=== PATIENT | male | born 1960 | race Caucasian/White ===

== ENCOUNTER 2018-12-03 10:34 | Emergency (ER) | payer OTHER, SELFPAY ==
[2018-08-02 16:09] VITALS: BMI 36.7
[2018-12-03 10:37] VITALS: BP 136/79; PULSE 81; RESP 18; TEMP 36.6; O2SAT 99; BMI 36.2
--- NOTE | 2018-12-03 11:06 | ED.DCSUM_ITS ---
- ER Visit Summary Date of Service: 12/03/18 Chief Complaint: Knee injury, ankle injury History of Present Illness: The patient is a 58 M presents to the emergency department with left knee injury and right ankle injury. Patient states that on Tuesday, he [place] stairs [place]. He states his left knee gave out which is not atypical. However, states he twisted under him and he ended up landing on his right ankle and twisting out. He did not strike his head. He denies loss of consciousness. States the knee did swell up. He is been taking ibuprofen and using ice. He is still able to bear weight but does describe pain. He also feels like the knee is loose. Physical Examination: Exam is relatively unremarkable. Patient does have some laxity of anterior drawer testing. There is a small effusion. His extension is preserved. There is no erythema or edema. His pulses are normal. Examination of the right ankle does demonstrate some tenderness over the lateral malleolus, but no proximal fibular tenderness or tenderness over the head of the fifth metatarsal. Test Results: [] Emergency Department Course and Treatment:The patient does have some mild laxity of the knee but there is no gross ligamentous disruption. I did obtain plain films. There is a small effusion, but no fracture. I obtained x-rays of his right ankle 2 which were negative. The patient states that when he stands, he f eels as if his knee is loose. Because of this, I am going to treat him conservatively with a knee immobilizer. He is also given crutches and a short course of analgesics. He will be given outpatient orthopedic follow-up. He is comfortable with this plan of care and will be discharged home. Treatment Plan: [] Disposition: Discharge Impression: 1. Left knee sprain with effusion 2. Right ankle sprain This note was generated with [employer] dictation software. It may contain incorrect words, spelling, and punctuation that were not noted in review of the chart prior to signing ED Disposition - Plan for ED Patient: Instructions: ED Effusion Knee Prescriptions: Hydrocodone Bitart/Apap 5-325 [[place] 5MG-325MG] 1 tab PO Q6H PRN PRN 3 Days #10 tab PRN Reason: Pain Referrals: Therese Laguerre DO [STAFF PHYSICIAN] -
--- NOTE | 2018-12-03 11:20 | RAD_ITS ---
STUDY: X-RAY - RIGHT ANKLE REASON FOR EXAM: Male, 58 years old. Rolled ankle last Jt, pain and swelling TECHNIQUE: 3 view(s) of the ankle. COMPARISON: None. FINDINGS: Bony protuberance of the distal fibula and distal tibia, likely sequela of old injury. Old medial malleolus fracture is noted. Normal tibiotalar articulation and ankle mortise. Normal visualized talus and calcaneus. The visualized subtalar, talonavicular, calcaneocuboid and tarsal articulations are normal. There is mild soft tissue swelling surrounding the ankle. RAD/Ankle min 3 Views IMPRESSION: 1. No fracture or malalignment. Mild soft tissue swelling. 2. Sequelae of old injury, as above. Electronically Signed: Richard Singh MD at 11:50 EDT , Service support ,
--- NOTE | 2018-12-03 11:28 | RAD_ITS ---
STUDY: X-RAY - LEFT KNEE REASON FOR EXAM: Male, 58 years old. Left knee gave out last Jt, pain TECHNIQUE: 4 view(s) of the knee. COMPARISON: None. FINDINGS: Normal visualized distal femur. Normal visualized proximal tibia and fibula. Normal proximal tibiofibular articulation. Normal medial femorotibial compartment. Normal lateral femorotibial compartment. There is mild degenerative arthrosis of the patellofemoral articulation. There is a soft tissue prominence in the suprapatellar region suggesting a small volume joint effusion. The soft tissue structures are unremarkable. RAD/Knee 4 or More Views IMPRESSION: Small joint effusion. No fracture or malalignment. Electronically Signed: Richard Singh MD at 11:43 EDT , Service support ,
[2018-12-03] MEDS: Ondansetron ODT 4 MG Tablet PO (11:49)
[2018-12-03] MEDS: HYDROcodone Bitartrate/Apap 5/325 Tablet PO (11:50)
[2018-12-03 13:05] VITALS: BP 127/70; PULSE 88; RESP 17; O2SAT 99
== END 2018-12-03 13:08 | disposition home or self-care (01) ==
PROVIDERS: Emergency Provider Emergency Medicine; Family Provider Nurse Practitioner; PCP Nurse Practitioner
DX: S83.92XA Sprain of unspecified site of left knee, initial encounter (principal); M25.462 Effusion, left knee; S93.401A Sprain of unspecified ligament of right ankle, initial encounter; X50.1XXA Overexertion from prolonged static or awkward postures, initial encounter; Y93.39 Activity, other involving climbing, rappelling and jumping off; Y92.008 Other place in unspecified non-institutional (private) residence as the place of occurrence of the external cause; I10 Essential (primary) hypertension
CPT/HCPCS: 73564; 73610; 99285

== ENCOUNTER → 2018-12-22 06:36 | Outpatient (CLI) | payer OTHER, SELFPAY ==
[2018-12-07 13:35] VITALS: BMI 36.2
--- NOTE | 2018-12-22 06:37 | MRI_ITS ---
STUDY: MRI LEFT KNEE REASON FOR EXAM: Medial knee pain after injury 2 weeks ago. TECHNIQUE: Standardized fat and water weighted pulse sequences were obtained in all 3 orthogonal planes. COMPARISON: Radiographs 12/03/2018. FINDINGS: There is a complex tear of the posterior horn of the medial meniscus (proton-density sagittal images 7-10) including a small radial component at the root (T2 sagittal image 10). There is peripheral subluxation of the medial meniscus. Normal hyaline cartilage of the medial femorotibial compartment. Normal medial femoral condyle and tibial plateau. There is a partial tear of the medial collateral ligament at the femoral origin (T2 coronal image 16). Normal distal semimembranosus, gracilis and semitendinosus tendons. Normal lateral meniscus. Normal hyaline cartilage of the lateral femorotibial compartment. Normal lateral femoral condyle and tibial plateau. Normal proximal tibiofibular articulation. There is a mild sprain of the fibular collateral ligament (T2 coronal image 13). Normal popliteus tendon. Normal biceps femoris tendon. Normal anterior cruciate ligament (ACL). Normal posterior cruciate ligament (PCL). Normal congruent patellofemoral articulation. Normal hyaline cartilage of the patellofemoral compartment. Normal medial and lateral patellar retinaculum. Normal visualized quadriceps tendon. There is mild patellar tendinosis (T2 sagittal image 15). Normal Hoffa's fat pad. There is a qkowa-gh-ytqvlarf sized joint effusion. There is a small focus of synovitis at the anterior mesial aspect of the medial tibial plateau (T2 sagittal image 12). The soft tissues are unremarkable. The otherwise visualized osseous structures are unremarkable. MRI/Lower Ext Joint Only (Routine) IMPRESSION: Medial meniscal tear. Partial tear of the medial collateral ligament. Mild sprain of the fibular collateral ligament. Mild patellar tendinosis. Joint effusion with small focus of synovitis. Electronically Signed: Maverick Thomson MD at 9:28 EDT Tel , Service support ,
== END ==
PROVIDERS: Family Provider Nurse Practitioner; PCP Nurse Practitioner; Referring Provider Physician Assistant; Visit Provider Physician Assistant
DX: M23.8X2 Other internal derangements of left knee (principal); M23.332 Other meniscus derangements, other medial meniscus, left knee
CPT/HCPCS: 73721

== ENCOUNTER 2019-01-30 10:25 | Day surgery (SDC) | payer OTHER, SELFPAY ==
[2019-01-17 09:26] VITALS: BMI 36.2
--- NOTE | 2019-01-17 10:32 | HP_ITS ---
Intake Vital Signs 01/17/19 Body Mass Index (BMI) 36.2 Intake Visit Reasons: LEFT KNEE Allergies No Known Allergies Allergy (Verified 12/03/18 10:37) [facility] Medical History (Updated 08/02/18 @ 16:14 by ILANA Mcgee) Gout (Acute) TRIGLYCERIDEMIA (Acute) Family History (Updated 08/02/18 @ 15:06 by Mehnaz Denny) Other Diabetes Hypertension Lung cancer Social History (Updated 01/17/19 @ 10:32 by ERICA Macdonald) Smoking Status: Never smoker second hand exposure: No alcohol intake: current substance use type: does not use HPI LEFT KNEE: Surgical H&P: Yes Details: Parts of this documentation were recorded by a scribe, this documentation accurately reflects the service provided and the decisions made by me, ERICA Macdonald 01/17/19 3587. ASHU NANCE is a 58 year old M here today for MRI f/u on the left knee. He states he has no pain with walking but swimming and any movement of twisting or pivoting increases his pain and instability. No swelling noted today. Denies numbness, tingling or other associated symptoms. Ortho Exam Left Knee Skin/Wound: No ecchymosis, No erythema, Yes swelling Contralateral Normal: Yes Homans Sign: No Knee ROM: Yes ROM-Extension -20 to 0, No ROM-Flexion 0-140 Examination: Yes med jt line tenderness, No Lat jt line tenderness, Yes Pain with flexion, Yes Kolton's Test KNEE: Still no acute abnormalities on inspection. He does have some mild generalized swelling still noted. There are no skin changes noted. He continues to have medial joint line pain and pain with any type of rotation movements as well as with flexion. Assessment & Plan Problems 1. Acute medial meniscus tear of left knee, subsequent encounter S83.437D 2. Tear of medial collateral ligament of left knee, subsequent encounter S83.412D Plan Patient presents today to follow-up following his MRI of the left knee. Patient states that he continues to have pain and mechanical symptoms of the knee primarily instability. He states that if he walks slowly in a straight line without any movement he is okay but with any twisting at all he has pains in the feeling of giving out. At this time we did review his MRI findings and with his mechanical symptoms discussed treatment options. Patient states that he is an active person and with the mechanical symptoms he would like to proceed with surgical intervention of this. We did discuss surgery in detail and the possibility of a repair versus a meniscectomy and what that means for his recovery. We discussed that the MCL will not likely need repaired at the same time he should wear hinged brace given him previously. We discussed the risks and the benefits of surgery which patient understands. I did have Dr. Burns also come into speak with patient regarding surgery (details, options, risks/benefits.) His questions were answered and consent was signed in office today. At this time we will look to proceed with this on January 30. He will be contacted by anesthesia for preanesthesia testing and will not know the time of his surgery until the day before. Patient was given surgical cleansed to be use the night before and morning of his surgery on his entire lower extremity. In the meantime he can continue to ice and take anti-inflammatories however should not take anti-inflammatories a week prior to procedure. Notify the office with any other questions or concerns in the meantime. This note was generated with [employer] dictation software. It may contain incorrect words, spelling, and punctuation that were not noted in checking the note before signing. Coding Level of Care Code Off vis,est,level 2 Diagnoses Acute medial meniscus tear of left knee, subsequent encounter S83.242D ??Encounter type: subsequent encounter Tear of medial collateral ligament of left knee, subsequent encounter S83.412D ??Encounter type: subsequent encounter 01/17/19 1032 <Electronically signed by Ren MALDONADO> Date _ Ren MALDONADO
[2019-01-30] VITALS (7 sets, daily range): BP systolic 108–128; BP diastolic 75–83; PULSE 60–82; RESP 16; TEMP 36.1–36.6; O2SAT 92–97; BMI 35.9
[2019-01-30] MEDS: Cefazolin 2 GM in 0.9% Normal Saline 100 ML IV (13:15)
[2019-01-30] MEDS: Epinephrine (1 mg/ml) 1 MG/ML VIAL (13:55)
[2019-01-30] MEDS: MethylPREDNISolone Acetate 80 MG/ML Vial (13:55)
[2019-01-30] MEDS: Morphine 4 MG/ML Syringe (13:55)
[2019-01-30] MEDS: Bupiv/Epi 0.5% Mpf 30 ML Vial (13:55)
[2019-01-30] MEDS: Bupivacaine 0.5% PF 10 ML VIAL (13:55)
--- NOTE | 2019-01-30 14:10 | OP.PCM_ITS ---
Report of Operation Date of Procedure: 01/30/19 Description of Surgical Findings:: Preop diagnosis: Left complex medial meniscus tear posterior horn Postoperative diagnosis: Same plus grade 3 cartilage wear medial femoral condyle Procedure: Left arthroscopic partial medial meniscectomy Anesthesia: General Estimated blood loss: 5 mL Tourniquet time: 20 minutes 300 mmHg Complications: none Indication for procedure: This is a 58-year-old male patient who had mechanical symptoms and ever MRI evidence of medial meniscus tear and early degenerative change. The patient did wish to proceed with an elective arthroscopic surgery to attempt to alleviate the symptoms. Risk benefits and alternatives of the procedure were reviewed including risk of bleeding infection nerve artery tissue damage need for further surgery continued pain and expected postoperative course. Procedure: The patient was met in the preoperative holding area. The operative extremity was identified by both patient and physician and family and marked. Patient was brought back to the operating room on a wheeled cart and transferred to the operating table in the supine position. Anesthesia was started. A well- padded tourniquet was placed on the operative extremity. A lower extremity leg rogers was secured to the operative extremity. The contralateral extremity was well-padded and the end of the bed was flexed to 90 degrees. The patient was prepped and draped in the usual sterile fashion. A timeout was called to ensure the proper patient, procedure, and extremity were being contemplated. 0.5% Marcaine with epinephrine was injected into the planned incisional areas under the skin only. An Esmarch was used to exsanguinate the extremity and the tourniquet was inflated. An 11 blade scalpel was used to make a stab incision in the anterior lateral portal. The arthroscope was inserted into the intercondylar notch and inflow and outflow tubes were attached. Arthroscopic visualization began. The medial compartment was entered. An 18-gauge spinal needle was used to establish the placement for anterior medial portal. An 11 blade scalpel was used to make a stab incision. Blunt probe was inserted followed by a meniscal probe. Immediately noted to be tearing of the posterior horn medial meniscus which had radial and horizontal patterns being a complex. With the use of a 3 5 full-radius shaver and ArthroCare wand partial medial meniscectomy was performed the ACL was found to be intact. The lateral compartment was entered and was free of meniscal or cartilage pathology The arthroscope was switched to the medial portal to complete the procedure. The medial and lateral gutters were inspected and were free of loose bodies. The patellofemoral joint was inspected grade 2 cartilage wear. Slight lateral tracking the knee was thoroughly irrigated and drained. An intra-articular injection with 5 cc 0.5% Marcaine plain 4 mg of morphine and 40 mg of Depo- Medrol was injected intra-articularly. The arthroscope was removed the portals were closed with 3-0 nylon arthroscopic stitches. Followed by Xeroform 4 x 4's ABDs web roll and an Steffen wrap. The tourniquet was let down and the drapes were removed. All counts were correct. The patient was brought back to the PACU in stable condition.
--- NOTE | 2019-01-30 14:10 | PCM.HP.BLA ---
History and Physical Date of Admission: 01/30/19 History and Physical 01/17/19 1032 MR#: [id number] Acct: [id number] Name: ASHU NANCE Rep #: [id number] : 1960 58 From: V[address] Grant CAZARES PCP: Matilda Robb NP [place]: [place] [facility] [place] [facility] [place] Vital Signs 01/17/19 Body Mass Index (BMI) 36.2 Intake Visit Reasons: LEFT KNEE Allergies No Known Allergies Allergy (Verified 12/03/18 10:37) [facility] Medical History (Updated 08/02/18 @ 16:14 by Matilda Robb NP-C) Gout (Acute) TRIGLYCERIDEMIA (Acute) Family History (Updated 08/02/18 @ 15:06 by Mehnaz Denny) Other Diabetes Hypertension Lung cancer Social History (Updated 01/17/19 @ 10:32 by ERICA Macdonald) Smoking Status: Never smoker second hand exposure: No alcohol intake: current substance use type: does not use HPI LEFT KNEE: Surgical H&P: Yes Details: Parts of this documentation were recorded by a scribe, this documentation accurately reflects the service provided and the decisions made by , ERICA Macdonald 01/17/19 7411. SAHU NANCE is a 58 year old M here today for MRI f/u on the left knee. He states he has no pain with walking but swimming and any movement of twisting or pivoting increases his pain and instability. No swelling noted today. Denies numbness, tingling or other associated symptoms. Ortho Exam Left Knee Skin/Wound: No ecchymosis, No erythema, Yes swelling Contralateral Normal: Yes Homans Sign: No Knee ROM: Yes ROM-Extension -20 to 0, No ROM-Flexion 0-140 Examination: Yes med jt line tenderness, No Lat jt line tenderness, Yes Pain with flexion, Yes Kolton's Test KNEE: Still no acute abnormalities on inspection. He does have some mild generalized swelling still noted. There are no skin changes noted. He continues to have medial joint line pain and pain with any type of rotation movements as well as with flexion. Assessment & Plan Problems 1. Acute medial meniscus tear of left knee, subsequent encounter S83.476N 2. Tear of medial collateral ligament of left knee, subsequent encounter S83.412D Plan Patient presents today to follow-up following his MRI of the left knee. Patient states that he continues to have pain and mechanical symptoms of the knee primarily instability. He states that if he walks slowly in a straight line without any movement he is okay but with any twisting at all he has pains in the feeling of giving out. At this time we did review his MRI findings and with his mechanical symptoms discussed treatment options. Patient states that he is an active person and with the mechanical symptoms he would like to proceed with surgical intervention of this. We did discuss surgery in detail and the possibility of a repair versus a meniscectomy and what that means for his recovery. We discussed that the MCL will not likely need repaired at the same time he should wear hinged brace given him previously. We discussed the risks and the benefits of surgery which patient understands. I did have Dr. Burns also come into speak with patient regarding surgery (details, options, risks/benefits.) His questions were answered and consent was signed in office today. At this time we will look to proceed with this on January 30. He will be contacted by anesthesia for preanesthesia testing and will not know the time of his surgery until the day before. Patient was given surgical cleansed to be use the night before and morning of his surgery on his entire lower extremity. In the meantime he can continue to ice and take anti-inflammatories however should not take anti-inflammatories a week prior to procedure. Notify the office with any other questions or concerns in the meantime. This note was generated with [employer] dictation software. It may contain incorrect words, spelling, and punctuation that were not noted in checking the note before signing. Coding Level of Care Code Off vis,est,level 2 Diagnoses Acute medial meniscus tear of left knee, subsequent encounter S83.242D ??Encounter type: subsequent encounter Tear of medial collateral ligament of left knee, subsequent encounter S83.412D ??Encounter type: subsequent encounter 01/17/19 1032 <Electronically signed by Ren New PA> Date Ren MALDONADO 01/24/19 1630 <Electronically signed by Víctor Burns DO> Date: Time: Víctor Burns DO CC: MIL Robb; Víctor Burns DO ~ Date Dictated: 01/17/19 1032 Date Transcribed: 01/23/19 1600 Hot Roll Laminator: Signed I have re-examined the patient. There are no clinical changes since date of exam
--- NOTE | 2019-01-30 14:13 | PCM.DC.ORTHO ---
Discharge Diet: No Restrictions Call your doctor if you observe: Shortness of breath, Chest pain Additional Instructions: Ice and elevate next 72 hours .keep dressing on clean and dry for 48 hours then may remove begin showering daily but do not submerge in tub or pool. After shower may apply Band-Aids . Encourage knee range of motion weightbearing as tolerated, use crutches until confident in knee then may discontinue. No strenuous activity. When not ambulating keep iced and elevated next 72 hours. Allergies/Adverse Reactions: Allergies No Known Allergies Allergy (Verified 01/23/19 14:47) Medications to take at Discharge Naproxen [Naprosyn] 500 mg PO BID PRN PRN 01/23/19 Hydrocodone Bitart/Apap 5-325 [[place] 5MG-325MG] 1 - 2 tablet PO Q4H PRN PRN 5 Days #30 tablet 01/30/19 The following prescriptions were given: Hydrocodone Bitart/Apap 5-325 [[place] 5MG-325MG] 1 - 2 tablet PO Q4H PRN PRN 5 Days #30 tablet PRN Reason: Pain Transmission Status: Sent to [facility] Primary Care Physician: Matilda Robb NP-C [Primary Care Provider] - Test Results: Test results from this visit will be discussed in further detail at your follow-up appointment, if applicable. Please Follow Up With: Víctor Burns DO - 2 weeks
== END 2019-01-30 15:45 | disposition home or self-care (01) ==
LOC: SDC 10:26 → AC 10:27
PROVIDERS: Family Provider Nurse Practitioner; PCP Nurse Practitioner; Referring Provider Orthopaedic Surgery; Visit Provider Orthopaedic Surgery
PROC: (CPT 29870; principal; 2019-01-30 13:25)
DX: S83.232A Complex tear of medial meniscus, current injury, left knee, initial encounter (principal); S83.412A Sprain of medial collateral ligament of left knee, initial encounter; X58.XXXA Exposure to other specified factors, initial encounter
CPT/HCPCS: 29881; J7120

== ENCOUNTER → 2020-09-18 21:43 | Outpatient (CLI) | payer OTHER, SELFPAY ==
[2020-09-18 18:31] VITALS: BMI 38.1
[2020-09-18 21:52] LABS: Absolute Lymphocyte Count 1.79 X10^3/uL (0.83-4.51); Absolute Neutrophil Count 4.6 X10^3/uL (2.0-7.7); Basophil# 0.03 X10^3/uL; Basophil% 0.4 % (0-1); Eosinophils% 2.7 % (0-5); Hematocrit 42.5 % (40-54); Lymphocyte # 1.79 X10^3/ul (4.0); Lymphocyte % 24.2 % (19-41); Mean Corp Hgb Conc 32.9 g/dL (32-36); Mean Corpuscular Hgb 29.6 pg (27.0-32.0); Mean Corpuscular Volume 89.9 fL (80-94); Mean Platelet Vol. 11.4 fl (6.2-12.0); Monocyte# 0.75 X10^3/uL; Monocyte% 10.1 % (0-10); NRBC Flagged by Analyzer 0 % (0-5); Neutrophil % 62.3 % (47-70); Platelet Count 192 K/mm3 (150-450); RBC Distribution Width CV 13.3 % (11.6-14.6); RBC Distribution Width SD 43.6 fl (35.1-43.9); Red Blood Count 4.73 M/mm3 (4.6-6.2); White Blood Count 7.4 K/mm3 (4.4-11.0)
[2020-09-18 22:57] LABS: ALB/GLOB Ratio 0.9 RATIO (0.9-2.4); AST(SGOT) 22 U/L (15-37); Alanine Aminotransfer ALT/SGPT 45 U/L (16-61); Albumin, Serum 3.6 g/dL (3.2-5.0); Alkaline Phosphatase 118 U/L (45-117); Anion Gap 5 (5-15); BUN 19 mg/dL (7-18); BUN/Creat Ratio 13.6 RATIO (10-20); Chloride 103 mmol/L (98-107); Cholesterol 206 mg/dL (200); EST Glomerular Filtration Rate 55 mL/min (>60); Est Glom Filt Rate - Afr Amer 67 mL/min (>60); Globulin 3.8 g/dL (2.2-4.2); Glucose 166 mg/dL (74-106); High Density Lipoprotein 26 mg/dL; PSA,Total - Annual Screen 1.34 ng/mL (0.00-4.00); Potassium 4.3 mmol/L (3.5-5.1); Protein, Total 7.4 g/dL (6.4-8.2); Rheumatoid Factor < 10.0 IU/mL (<15); Sodium Level 139 mmol/L (136-145); Triglycerides 807 mg/dL
[2020-09-19 11:33] LABS: Uric Acid 7.4 mg/dL (3.5-7.2)
[2020-09-19 13:13] LABS: CRP, High Sensitivity Cardiac 8.79 mg/L
[2020-09-22 07:32] LABS: ANTINUCLEAR ANTIBODIES DIRECT Negative (Negative)
== END ==
PROVIDERS: PCP Nurse Practitioner; Visit Provider Nurse Practitioner
DX: M25.50 Pain in unspecified joint (principal); N52.9 Male erectile dysfunction, unspecified; G47.00 Insomnia, unspecified; T50.Z95A Adverse effect of other vaccines and biological substances, initial encounter
CPT/HCPCS: 80053; 80061; 84153; 84550; 85025; 86038; 86140; 86141; 86225; 86235; 86431; G0103

== ENCOUNTER → 2021-02-17 | Outpatient (CLI) | payer OTHER, SELFPAY ==
[2020-10-22 15:30] VITALS: BMI 37.5
[2021-02-17 22:47] LABS: ALB/GLOB Ratio 0.9 RATIO (0.9-2.4); AST(SGOT) 33 U/L (15-37); Alanine Aminotransfer ALT/SGPT 57 U/L (16-61); Albumin, Serum 3.7 g/dL (3.2-5.0); Alkaline Phosphatase 104 U/L (45-117); Anion Gap 7 (5-15); BUN 13 mg/dL (7-18); BUN/Creat Ratio 12.6 RATIO (10-20); Calcium,Total 9.2 mg/dL (8.5-10.1); Chloride 104 mmol/L (98-107); Cholesterol 208 mg/dL (200); Creatinine, Serum 1.03 mg/dL (0.70-1.30); EST Glomerular Filtration Rate 79 mL/min (>60); Est Glom Filt Rate - Afr Amer 95 mL/min (>60); Glucose 96 mg/dL (74-106); High Density Lipoprotein 30 mg/dL; Potassium 4.2 mmol/L (3.5-5.1); Protein, Total 7.7 g/dL (6.4-8.2); Sodium Level 139 mmol/L (136-145); Triglycerides 444 mg/dL
== END | disposition home or self-care (01) ==
PROVIDERS: PCP Nurse Practitioner; Visit Provider Nurse Practitioner
DX: E78.1 Pure hyperglyceridemia (principal); M10.9 Gout, unspecified
CPT/HCPCS: 80053; 80061; 84550

== ENCOUNTER 2023-06-16 13:28 | Day surgery (SDC) | payer OTHER, SELFPAY ==
[2023-06-16] MEDS: Lactated Ringers 1,000 ML 15 ML IV (13:45)
[2023-06-16 13:47] VITALS: BP 133/92; PULSE 73; RESP 16; TEMP 36.6; O2SAT 99; BMI 37.6
--- NOTE | 2023-06-16 14:56 | HP.PCM_ITS ---
HPI - General HPI Narrative ASHU NANCE, is a 63 M who presents for screening colonoscopy. His last colonoscopy was 10 years ago and was normal. He denies any abdominal pain or blood in the stool. He has no family history of colon cancer. [facility] Medical History Abnormal skin growth Cardiology follow-up encounter Chronic pain of left knee Elevated C-reactive protein (CRP) Erectile dysfunction Family history of endogenous hypertriglyceridemia Gout Hypertriglyceridemia Insomnia Meniscus, lateral, derangement Multiple joint pain Non-smoker Obesity Onychomycosis Weight gain Home Medications icosapent ethyl 1 gram capsule (Vascepa) 2 g (2 x 1 gram) PO BID #180 caps 06/25/22 [Rx Last Taken Unknown] sildenafil 100 mg tablet (Viagra) 100 mg PO DAILY PRN sexual activity #10 tabs 06/25/22 [Rx Last Taken Unknown] zolpidem 10 mg tablet 10 mg PO QHS PRN insomnia #30 tabs 06/25/22 [Rx Last Taken Unknown] Allergy/AdvReac Type Severity Reaction Status Date / Time No Known Allergies Allergy Verified 06/16/23 13:46 Family History (Updated 05/24/23 @ 16:04 by Julissa Lopez) Father Colon polyps Other Diabetes Hypertension Lung cancer Surgical History History of surgical removal of meniscus of knee Hx of colonoscopy Social History (Updated 05/24/23 @ 16:06 by Julissa Lopez) household members: spouse current occupational status: employed Smoking Status: Never smoker second hand exposure: No alcohol intake: current alcohol intake frequency: a few times a week Alcohol type: beer and hard liquor substance use type: does not use Past Medical/Surgical History Planned Operation Planned Operative Procedure/s: COLONOSCOPY S.O.S: No Previous Hospitalizations/Surgeries HX Hospitalizations: No HX of Surgeries: colonoscopy Any Problems With Anesthesia: No You/Your Family Experience Fever (Hyperthermia) With Anes: No Cholinesterase deficiency: No Cardiovascular Hx Chest Pain within Last 2 months: No Hx of Irregular Heartbeat and/or Afib: No Hx Heart Attack: No Hx Congestive Heart Failure: No Hx Rheumatic Fever: No Hx Hypertension: No Hx Internal Defibrillator: No Hx Pacemaker: No Hx Cardiac Catheterization: No Hx Cardiac Surgery/Stents/Etc.: No Hx Stress Test: Yes () Hx Pain in Legs when Walking/Leg Cramps: Yes (left knee) Respiratory Chronic Cough: No HX of Shortness of Breath: No Hoarseness: No Hx Chronic Obstructive Pulmonary Disease (COPD): No Hx Asthma: No Hx Emphysema: No Hx Sleep Apnea: No CPAP: No BIPAP: No Hx Respiratory Tract Infection/Cold (presently): No Do You Snore Loudly (louder than talking or can be heard): Yes Do You Often Feel Tired/ Fatigued/ Sleepy Dring Daytime?: No Has Anyone Observed You Stop Breathing During Sleep?: No Result (for STOP score): Negative Hx Smoking: No Smoking Status: Never smoker Gastrointestinal Hx Gastrointestinal Disorders: No Hx Gastrointestinal Bleed: No Hx Ulcer: No Hx Hiatal Hernia: No Difficulty Chewing/Swallowing: No Special diet followed at home: No Hx Unplanned Weight Loss of 20#: No HX Unplanned Weight Gain of 20#: No Neurological Hx Seizures: No HX Syncope/Blackout Spells/Unconsciousness: No Hx Transient Ischemic Attacks (TIA): No Hx Multiple Sclerosis: No Hx Parkinson's Disease: No Hx Head/Neck Injury: No Hx Headaches: No Hx Back Injury/Pain: No Recent Onset of Speech Difficulty: No Restless Legs: Yes Does patient have nerve stimulator: No Blood Disorder Hx Leukemia: No Bleeding Tendencies: No Hx Deep Vein Thrombosis: No Hx High Cholesterol: No Blood Transmitted Disease: No Hx Hepatitis: No Hx Cirrhosis: No Hx Anemia: No Hx Blood Disorders: No Reproduction : No Is Patient Lactating: No Hx Hysterectomy: No Hx Tubal Ligation: No Are You Post Menopause: No Genitourinary Hx Renal Disease: No Musculoskeletal Hx Arthritis: No Hx Rheumatoid Arthritis: No Hx Gout: No Recent Onset of an Orthopedic Problem: Yes (left knee) Endocrine Hx Diabetes: No Thyroid Disease: No Hx Steroid Therapy: No Psycho/Social Hx Substance Use: No Hx Alcohol Use: Yes (SOCIAL) Hx Anxiety: No Hx Depression: No Mental Illness: No Hx Dementia: No Miscellaneous Hx Cancer: No Recent Exposure to Contagious Disease: No Hx of C-Diff: No Any Loose Teeth: No Allergies No Known Allergies Allergy (Verified 06/16/23 13:46) Vital Signs Vital Signs Vital Signs: 06/16/23 13:47 06/16/23 13:47 Temperature 97.8 F Temperature Source Temporal Pulse Rate 73 Respiratory Rate 16 Respiratory Pattern Normal Blood Pressure 133/92 H Blood Pressure Mean 105 Blood Pressure Source Monitor Blood Pressure Position Semi-Fowlers Blood Pressure Location Right Arm Pulse Ox 99 Oxygen Delivery Method Room Air Weight Weight: 301 lb 2.423 oz Body Mass Index (BMI) 37.6 Physical Exam Const alert and oriented x3 HEENT normocephalic Eyes PERRL Resp normal respiratory effort and normal air movement Cardio regular rate and regular rhythm GI soft to palpation, non-tender and non-distended Extremity normal to inspection Assessment & Plan Assessment/Plan (1) Screen for colon cancer: PLAN: I explained endoscopy in detail to the patient. I explained the risks including but not limited to stroke or heart attack with anesthesia, perforation of the GI tract, bleeding, infection. I explained that any of these could necessitate further emergency surgery. The patient understands and all questions were answered sufficiently. The patient wishes to proceed with procedure. Barry Hernandez MD Pager: [facility] [address] [place] [address] [address] [place] [address] Office: Surgery Risks - Colonoscopy Risks Include but are not Limited To: Risks include but are not limited to: Bleeding, perforation requiring further surgery, inability to complete colonoscopy requiring barium enema.
--- NOTE | 2023-06-16 15:23 | OP.CCLET_ITS ---
06/16/2023 Matilda Robb NP [facility] [address] [place] [id number] Re : Colonoscopy procedure for Manjit Huizar Dear Ms. Robb This procedure was performed on June. My impressions and recommendations are as follows: Impressions : - The entire examined colon is normal on direct and retroflexion views. - No specimens collected. Recommendations : - Discharge patient to home. - Resume previous diet. - Continue present medications. - Repeat colonoscopy in 10 years for screening purposes. My findings are described in the full procedure note, which is enclosed. If I can be of further assistance, please feel free to contact me at Doctor phone number(s): , Work: . Sincerely, Barry Hernandez MD 06/16/2023 3:22:30 PM This report has been signed electronically.
--- NOTE | 2023-06-16 15:23 | OP.COLON_ITS ---
Patient Name: Manjit Huizar Procedure Date: 06/16/2023 2:59 PM Date of : 1960 Age: 63 Procedure: Colonoscopy Indications: Screening for colorectal malignant neoplasm Providers: Barry Hernandez MD Referring MD: Matilda Robb NP Medicines: Monitored Anesthesia Care Patient Profile: This is a 63 year old male. Refer to note in patient chart for documentation of history and physical. Last Colonoscopy: 10 years ago. Complications: No immediate complications. Procedure: Pre-Anesthesia Assessment: - Prior to the procedure, a History and Physical was performed, and patient medications and allergies were reviewed. The patient's tolerance of previous anesthesia was also reviewed. The risks and benefits of the procedure and the sedation options and risks were discussed with the patient. All questions were answered, and informed consent was obtained. Prior Anticoagulants: The patient has taken no anticoagulant or antiplatelet agents. After reviewing the risks and benefits, the patient was deemed in satisfactory condition to undergo the procedure. After I obtained informed consent, the scope was passed under direct vision. Throughout the procedure, the patient's blood pressure, pulse, and oxygen saturations were monitored continuously. The pediatric colonoscope was introduced through the anus and advanced to the cecum, identified by appendiceal orifice and ileocecal valve. The colonoscopy was performed without difficulty. The patient tolerated the procedure well. The quality of the bowel preparation was good. The ileocecal valve, appendiceal orifice, and rectum were photographed. Scope In: 3:10:46 PM Scope Withdrawal Time 0 hours 6 minutes 15 seconds Scope Out: 3:19:51 PM Total Procedure Duration Time 0 hours 9 minutes 5 seconds Findings: The entire examined colon appeared normal on direct and retroflexion views. Impression: - The entire examined colon is normal on direct and retroflexion views. - No specimens collected. Recommendation: - Discharge patient to home. - Resume previous diet. - Continue present medications. - Repeat colonoscopy in 10 years for screening purposes. Procedure Code(s): --- Professional --- 70358, Colonoscopy, flexible; diagnostic, including collection of specimen(s) by brushing or washing, when performed (separate procedure) Diagnosis Code(s): --- Professional --- Z12.11, Encounter for screening for malignant neoplasm of colon CPT copyright 2021 [employer]. All rights reserved. The codes documented in this report are preliminary and upon sponge packer review may be revised to meet current compliance requirements. Barry Hernandez MD 06/16/2023 3:22:30 PM This report has been signed electronically. Number of Addenda: 0 Note Initiated On: 06/16/2023 2:59 PM
[2023-06-16 15:25] VITALS: BP 128/82; BP 133/92; PULSE 74; RESP 18; TEMP 36.4; O2SAT 95
[2023-06-16 15:30] VITALS: BP 133/92; BP 90/64; PULSE 70; RESP 18; O2SAT 97
[2023-06-16 15:35] VITALS: BP 107/66; BP 133/92; PULSE 70; RESP 18; TEMP 36.8; O2SAT 97
[2023-06-16 15:49] VITALS: BP 133/92
== END 2023-06-16 16:07 | disposition home or self-care (01) ==
LOC: EN 13:29 → AC 13:30
PROVIDERS: PCP Nurse Practitioner; Referring Provider Nurse Practitioner; Visit Provider Surgery
PROC: 0DJD8ZZ Inspection of Lower Intestinal Tract, Via Natural or Artificial Opening Endoscopic (ICD-10-PCS; CPT 45378; principal; 2023-06-16 14:25)
DX: Z12.11 Encounter for screening for malignant neoplasm of colon (principal); E78.1 Pure hyperglyceridemia; E66.9 Obesity, unspecified; Z68.37 Body mass index [BMI] 37.0-37.9, adult; Z79.899 Other long term (current) drug therapy; Z83.719 Family history of colon polyps, unspecified
CPT/HCPCS: 45378; J7120

== ENCOUNTER → 2023-11-07 | Outpatient (CLI) | payer OTHER, SELFPAY ==
[2023-11-07 22:07] LABS: Absolute Lymphocyte Count 2.07 X10^3/uL (0.83-4.51); Absolute Neutrophil Count 4.8 X10^3/uL (2.0-7.7); Basophil# 0.02 X10^3/uL; Basophil% 0.3 % (0-1); Eosinophil# 0.17 X10^3/uL; Eosinophils% 2.1 % (0-5); Hematocrit 45.3 % (40-54); Hemoglobin 15.2 g/dL (13.0-16.5); Lymphocyte # 2.07 X10^3/ul (0.83-4.51); Lymphocyte % 26.1 % (19-41); Mean Corp Hgb Conc 33.6 g/dL (32-36); Mean Corpuscular Hgb 30.1 pg (27.0-32.0); Mean Corpuscular Volume 89.7 fL (80-94); Mean Platelet Vol. 11.8 fl (6.2-12.0); Monocyte# 0.84 X10^3/uL; Monocyte% 10.6 % (0-10); NRBC Flagged by Analyzer 0 % (0-5); Neutrophil % 60.5 % (47-70); Platelet Count 184 K/mm3 (150-450); RBC Distribution Width CV 13.1 % (11.6-14.6); RBC Distribution Width SD 42.7 fl (35.1-43.9); Red Blood Count 5.05 M/mm3 (4.6-6.2); White Blood Count 7.9 K/mm3 (4.4-11.0)
[2023-11-07 22:36] LABS: ALB/GLOB Ratio 0.8 RATIO (0.9-2.4); AST(SGOT) 32 U/L (15-37); Alanine Aminotransfer ALT/SGPT 58 U/L (16-61); Albumin, Serum 3.4 g/dL (3.2-5.0); Alkaline Phosphatase 127 U/L (45-117); Anion Gap 6 (5-15); BUN 16 mg/dL (7-18); BUN/Creat Ratio 14.4 RATIO (10-20); Calcium,Total 8.8 mg/dL (8.5-10.1); Chloride 103 mmol/L (98-107); Cholesterol 206 mg/dL (200); Creatinine, Serum 1.11 mg/dL (0.70-1.30); EST Glomerular Filtration Rate 71 mL/min (>60); Est Glom Filt Rate - Afr Amer 86 mL/min (>60); Globulin 4.1 g/dL (2.2-4.2); Glucose 246 mg/dL (74-106); High Density Lipoprotein 28 mg/dL; PSA,Total - Annual Screen 1.86 ng/mL (0.00-4.00); Potassium 4.6 mmol/L (3.5-5.1); Protein, Total 7.5 g/dL (6.4-8.2); Sodium Level 136 mmol/L (136-145); Triglycerides 1105 mg/dL
== END | disposition home or self-care (01) ==
PROVIDERS: PCP Nurse Practitioner; Visit Provider Nurse Practitioner
DX: E78.1 Pure hyperglyceridemia (principal); G47.00 Insomnia, unspecified; E66.9 Obesity, unspecified; Z12.5 Encounter for screening for malignant neoplasm of prostate
CPT/HCPCS: 80053; 80061; 84153; 85025; G0103

== ENCOUNTER → 2024-10-26 | Outpatient (CLI) | payer OTHER, SELFPAY ==
[2024-10-26 22:57] LABS: Absolute Lymphocyte Count 1.08 X10^3/uL (0.83-4.51); Absolute Neutrophil Count 2.8 X10^3/uL (2.0-7.7); Basophil# 0.02 X10^3/uL; Basophil% 0.4 % (0-1); Eosinophil# 0.21 X10^3/uL; Eosinophils% 4.3 % (0-5); Hematocrit 44.5 % (40-54); Hemoglobin 15.1 g/dL (13.0-16.5); Lymphocyte # 1.08 X10^3/ul (0.83-4.51); Lymphocyte % 22.4 % (19-41); Mean Corp Hgb Conc 33.9 g/dL (32-36); Mean Corpuscular Hgb 29.5 pg (27.0-32.0); Mean Corpuscular Volume 87.1 fL (80-94); Mean Platelet Vol. 11.9 fl (6.2-12.0); Monocyte# 0.72 X10^3/uL; Monocyte% 14.9 % (0-10); NRBC Flagged by Analyzer 0 % (0-5); Neutrophil # 2.78 X10^3/uL (2.7-7.7); Neutrophil % 57.6 % (47-70); Platelet Count 164 K/mm3 (150-450); RBC Distribution Width CV 12.7 % (11.6-14.6); RBC Distribution Width SD 40.4 fl (35.1-43.9); Red Blood Count 5.11 M/mm3 (4.6-6.2); White Blood Count 4.8 K/mm3 (4.4-11.0)
[2024-10-26 23:41] LABS: ALB/GLOB Ratio 1.3 RATIO (0.9-2.4); AST(SGOT) 38 U/L (<=37); Alanine Aminotransfer ALT/SGPT 47 U/L (<=46); Alkaline Phosphatase 107 U/L (40-129); Anion Gap 14 (5-15); BUN 13 mg/dL (4-19); BUN/Creat Ratio 12.3 RATIO (10-20); Calcium,Total 9.2 mg/dL (7.6-11.0); Carbon Dioxide 20.7 mmol/L (21.0-32.0); Chloride 99 mmol/L (98-108); Cholesterol 189 mg/dL (<=200); Creatinine, Serum 1.05 mg/dL (0.70-1.20); EST Glomerular Filtration Rate 80 (>60); Globulin 3.2 g/dL (2.2-4.2); Glucose 340 mg/dL (70-99); High Density Lipoprotein 23 mg/dL; Low Density Lipoprotein Calc. 18 mg/dL; PSA,Total- Diagnostic 1.28 ng/mL (0.00-4.00); Protein, Total 7.2 g/dL (5.9-8.4); Sodium Level 133 mmol/L (133-145); Total Bilirubin 0.68 mg/dL (0.00-1.30); Triglycerides 739 mg/dL; Very Low Density Lipoprotein 148 mg/dL (5-40); cholesterol:hdl ratio screen 8.25
== END | disposition home or self-care (01) ==
PROVIDERS: PCP Nurse Practitioner; Referring Provider Nurse Practitioner; Visit Provider Nurse Practitioner
DX: N40.0 Benign prostatic hyperplasia without lower urinary tract symptoms (principal); E78.1 Pure hyperglyceridemia; F51.01 Primary insomnia; M1A.00X0 Idiopathic chronic gout, unspecified site, without tophus (tophi)
CPT/HCPCS: 80053; 80061; 84153; 85025

== ENCOUNTER → 2024-11-02 | Outpatient (CLI) | payer OTHER, SELFPAY ==
[2024-10-29 19:44] LABS: Hemoglobin A1c 8.7 % (<=5.6)
[2024-11-02 22:18] LABS: Absolute Lymphocyte Count 2.01 X10^3/uL (0.83-4.51); Basophil# 0.03 X10^3/uL; Basophil% 0.4 % (0-1); Eosinophil# 0.15 X10^3/uL; Eosinophils% 2.1 % (0-5); Hematocrit 44.6 % (40-54); Hemoglobin 15.2 g/dL (13.0-16.5); Lymphocyte # 2.01 X10^3/ul (0.83-4.51); Lymphocyte % 28.8 % (19-41); Mean Corp Hgb Conc 34.1 g/dL (32-36); Mean Corpuscular Hgb 29.5 pg (27.0-32.0); Mean Corpuscular Volume 86.6 fL (80-94); Mean Platelet Vol. 11.1 fl (6.2-12.0); Monocyte# 0.74 X10^3/uL; Monocyte% 10.6 % (0-10); NRBC Flagged by Analyzer 0 % (0-5); Neutrophil # 4.04 X10^3/uL (2.7-7.7); Neutrophil % 57.8 % (47-70); Platelet Count 199 K/mm3 (150-450); RBC Distribution Width CV 12.5 % (11.6-14.6); RBC Distribution Width SD 39.6 fl (35.1-43.9); Red Blood Count 5.15 M/mm3 (4.6-6.2)
[2024-11-02 22:27] LABS: Cholesterol 199 mg/dL (<=200); High Density Lipoprotein 26 mg/dL; Low Density Lipoprotein Calc. 86 mg/dL; Triglycerides 434 mg/dL; Very Low Density Lipoprotein 87 mg/dL (5-40); cholesterol:hdl ratio screen 7.62
== END | disposition home or self-care (01) ==
PROVIDERS: PCP Nurse Practitioner; Referring Provider Nurse Practitioner; Visit Provider Nurse Practitioner
DX: E11.65 Type 2 diabetes mellitus with hyperglycemia (principal); E78.1 Pure hyperglyceridemia; Z83.438 Family history of other disorder of lipoprotein metabolism and other lipidemia
CPT/HCPCS: 80061; 83036; 84443; 85025